=== PATIENT | female | born 1970 | race Caucasian/White ===

== ENCOUNTER 2017-12-01 05:13 | Day surgery (SDC) | payer BC ==
[~2017-12-01] VITALS: Ht 170.2 cm; Wt 84.5 kg
[~2017-12-01 05:13] MED LIST: RINGERS SOLUTION,LACTATED 1,000 ML IV ONE
[2017-12-01] MEDS ORDERED: MIDAZOLAM HCL 2 MG/2 ML VIAL IVP ONE (05:14)
[2017-12-01] MEDS ORDERED: 0.9% SODIUM CHLORIDE 10 ML VIAL IVP ONE (05:14)
[2017-12-01] MEDS ORDERED: ONDANSETRON HCL 4 MG/2 ML VIAL IVP ONE (05:14)
[2017-12-01] MEDS ORDERED: FentaNYL CITRATE-PF 100 MCG/2 ML VIAL IVP ONE (05:14)
[2017-12-01] MEDS ORDERED: SUCCINYLCHOLINE CHLORIDE 20 MG/ML 10 ML VIAL IVP ONE (05:14)
[2017-12-01] MEDS ORDERED: LIDOCAINE HCL/PF 2% 5 ML VIAL IM ONE (05:14)
[2017-12-01] MEDS ORDERED: PROPOFOL 1% 20 ML VIAL IVP ONE (05:14)
[2017-12-01] MEDS ORDERED: RINGERS SOLUTION,LACTATED 1,000 ML IV ONE (05:28)
[2017-12-01 06:02] LABS: BASOPHILS % (AUTO) 1.4 % (0.0-2.0); EOSINOPHILS % (AUTO) 1.4 % (1.0-6.0); LYMPHOCYTES # (AUTO) 3.7 K/uL (1.0-4.8); LYMPHOCYTES % (AUTO) 35.2 % (22.0-44.0); MEAN CORPUSCULAR HEMOGLOBIN 31.7 pg (26.0-34.0); MEAN CORPUSCULAR HGB CONC 34.9 G/dL (31.0-37.0); MEAN CORPUSCULAR VOLUME 91 fL (80-100); MONOCYTES # (AUTO) 1.1 K/uL (0.1-1.0); MONOCYTES % (AUTO) 10.3 % (2.0-9.0); NEUTROPHILS # (AUTO) 5.5 K/uL (1.8-7.7); NEUTROPHILS % (AUTO) 51.7 % (40.0-70.0); PLATELET COUNT (AUTO) 337 K/uL (150-450); RED BLOOD CELL COUNT(AUTO) 4.74 MIL/uL (4.00-5.20); RED CELL DISTRIBUTION WIDTH 13.1 % (11.5-14.5)
[2017-12-01] MEDS ORDERED: GUM MASTIC/STORAX/MSAL/ALCOHOL LIQUID 0.67 ML VIAL TP ONE (06:33)
[2017-12-01] MEDS ORDERED: BUPIVACAINE HCL/PF 0.25% 30 ML VIAL ONE (06:34)
[2017-12-01] MEDS ORDERED: LIDOCAINE HCL/PF 1% 30 ML VIAL ONE (06:36)
[2017-12-01] MEDS ORDERED: MICROFIBRILLAR COLLAGEN 1 GM PACKAGE TP ONE (07:42)
[2017-12-01] MEDS ORDERED: MUPIROCIN CALCIUM 2% 22 GM OINTMENT ONE (07:42)
[2017-12-01] MEDS ORDERED: VANCOMYCIN HCL 1 GM/VIAL ONE (07:42)
[2017-12-01] MEDS ORDERED: HYDROmorphone 2 MG/ML SYRINGE IVP PRN (07:45)
[2017-12-01] MEDS ORDERED: MEPERIDINE HCL/PF 25 MG/0.5 ML AMP IVP PRN (07:45)
[2017-12-01] MEDS ORDERED: OXYGEN THERAPY IH SCH (08:00)
[2017-12-01] MEDS ORDERED: FentaNYL CITRATE-PF 100 MCG/2 ML VIAL ONE ×2 (08:44→09:13)
[2017-12-01] MEDS: FentaNYL CITRATE-PF 100 MCG/2 ML VIAL IVP PRN ×4 (08:48→09:22)
[2017-12-01] MEDS ORDERED: HYDROmorphone 2 MG/ML SYRINGE ONE (08:50)
[2017-12-01] MEDS ORDERED: MEPERIDINE HCL/PF 25 MG/0.5 ML AMP ONE (08:50)
[2017-12-01] MEDS ORDERED: RINGERS SOLUTION,LACTATED 500 ML IV ONE (08:56)
[2017-12-01] MEDS ORDERED: ACETAMINOPHEN 1000 MG/ISO-OSM 100 ML IV ONE (09:06)
[2017-12-01] MEDS ORDERED: KETOROLAC TROMETHAMINE 30 MG/ML VIAL ONE (09:07)
[2017-12-01] MEDS ORDERED: ACETAMINOPHEN 1000 MG/ISO-OSM 100 ML IV STA (09:09)
[2017-12-01] MEDS ORDERED: HYDROmorphone 2 MG/ML SYRINGE IVP STA ×2 (09:09→09:20)
[2017-12-01] MEDS ORDERED: KETOROLAC TROMETHAMINE 30 MG/ML VIAL IVP STA (09:09)
== END 2017-12-01 10:40 | disposition home or self-care (01) ==
LOC: SURGERY 05:13
PROVIDERS: ATTEND Orthopaedic Surgery
DX: S63.246A Subluxation of distal interphalangeal joint of right little finger, initial encounter (principal); S96.111A Strain of muscle and tendon of long extensor muscle of toe at ankle and foot level, right foot, initial encounter; T84.84XA Pain due to internal orthopedic prosthetic devices, implants and grafts, initial encounter; G89.18 Other acute postprocedural pain; Y83.8 Other surgical procedures as the cause of abnormal reaction of the patient, or of later complication, without mention of misadventure at the time of the procedure; F17.210 Nicotine dependence, cigarettes, uncomplicated; E78.00 Pure hypercholesterolemia, unspecified; F10.21 Alcohol dependence, in remission; Z72.89 Other problems related to lifestyle; Z90.49 Acquired absence of other specified parts of digestive tract; Z98.890 Other specified postprocedural states; X58.XXXA Exposure to other specified factors, initial encounter; Y93.89 Activity, other specified; Y99.8 Other external cause status; Y92.89 Other specified places as the place of occurrence of the external cause
CPT/HCPCS: 20680; 28225; 28525; 36415; 84703; 85025; 88300; C1769; J0131; J0330; J0690; J1170; J1885; J2250; J2405; J2704; J3010; J3370; J3490 ×2; J7120 ×2